=== PATIENT | male | born 1995 | race Caucasian/White ===

== ENCOUNTER 2019-06-04 12:42 | Emergency (ER) | payer MEDICAID ==
[~2019-06-04] VITALS: Ht 162.6 cm; Wt 80.0 kg
[2019-06-04 13:06] VITALS: BP 113/69
--- NOTE | 2019-06-04 13:38 | NUR ---
PT C/O PAIN IN THE MIDDLE OF THE BACK SINCE TUESDAY. WAS LIFTING HEAVY FURNITURE OVER THE WEEKEND. WARM BATHES RELIEVE THE PAIN. PAIN IS 7/10. PT HAS NOT TAKEN ANY MEDS FOR PAIN. MEDHX: DENIES RX: DENIES
--- NOTE | 2019-06-04 14:39 | NUR ---
Patient discharged with v/s stable. Written and verbal after care instructions given and explained. Patient alert, oriented and verbalized understanding of instructions. Ambulatory with steady gait. All questions addressed prior to discharge. ID band removed. Patient advised to follow up with PMD. Rx of IBURPROFEN given. Patient educated on indication of medication including possible reaction and side effects. Opportunity to ask questions provided and answered.
[2019-06-04 14:40] VITALS: BP 122/69
== END 2019-06-04 14:39 | disposition home or self-care (01) ==
LOC: MED 12:42
DX: S29.012A Strain of muscle and tendon of back wall of thorax, initial encounter (principal); X50.0XXA Overexertion from strenuous movement or load, initial encounter; Y93.89 Activity, other specified; Y92.89 Other specified places as the place of occurrence of the external cause; Y99.8 Other external cause status
CPT/HCPCS: 99283